=== PATIENT | male | born 1975 | race Caucasian/White ===

== ENCOUNTER → 2020-08-20 | Outpatient (CLI) | payer OTHER ==
--- NOTE | 2020-08-20 10:03 | KCIC ---
Examination: MRI of the left knee without contrast HISTORY: History of the left medial meniscus COMPARISON: None available Technique: Multiplanar, multisequence MR imaging of the left knee were performed without contrast FINDINGS: The anterior cruciate ligament, posterior cruciate ligament appears intact. Horizontal increased sign al identified in the body and posterior horn of the medial meniscus with signal extending to the infe rior articular surface of the body of the medial meniscus likely tear. The lateral meniscus appears i ntact. The medial collateral ligament appears intact. Lateral collateral ligamentous complex including the f ibular collateral ligament, biceps femoris tendon, popliteus tendon appears intact. Extensor mechanism appears intact. The medial, lateral retinaculum appears intact. Small knee joint effusion. There is mild superficial fraying of cartilage identified in the medial compartment. Small subchondra l cystic changes identified in the medial femoral condyle anteriorly likely degenerative changes. Small knee joint effusion with a small popliteal cyst. Mild joint space loss identified in the medial , lateral compartment femoral compartments IMPRESSION: 1. Tear of the medial meniscus. 2. Small knee joint effusion with a small popliteal cyst. 3. Mild tricompartmental degenerative changes. Electronically signed by: Cleveland Bundy MD (08/20/2020 10:00 AM) [id number]
== END ==
LOC: KCIC MRI 08:16
PROVIDERS: ATTEND Physician Assistant
DX: S83.232A Complex tear of medial meniscus, current injury, left knee, initial encounter (principal); S83.242A Other tear of medial meniscus, current injury, left knee, initial encounter; M25.462 Effusion, left knee; M71.22 Synovial cyst of popliteal space [Baker], left knee; X58.XXXA Exposure to other specified factors, initial encounter; Y93.89 Activity, other specified; Y92.89 Other specified places as the place of occurrence of the external cause; Y99.8 Other external cause status
CPT/HCPCS: 73721